=== PATIENT | female | born 1995 | race Caucasian/White ===

== ENCOUNTER 2016-10-07 17:54 | Emergency (ER) | payer SELFPAY ==
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
[2016-10-07 22:29] VITALS: BP 119/69
== END 2016-10-07 22:03 | disposition home or self-care (01) ==
LOC: ED 17:54
DX: T14.8 Other injury of unspecified body region (principal); V20.5XXA Motorcycle passenger injured in collision with pedestrian or animal in traffic accident, initial encounter; Y92.9 Unspecified place or not applicable
CPT/HCPCS: 99282